=== PATIENT | female | born 1995 | race Caucasian/White ===

== ENCOUNTER 2024-02-24 16:56 | Emergency (ER) | payer SELFPAY ==
[~2024-02-24] VITALS: Ht 160 cm; Wt 85.0 kg
[2024-02-24 17:05] VITALS: O2SAT 98
[2024-02-24] MEDS ORDERED: IBUP-2030 MT (19:50)
[2024-02-24] MEDS: IBUPROFEN 800MG TABLET PO ONE (19:59)
[2024-02-24 20:01] VITALS: BP 126/75; PULSE 66; RESP 18; TEMP 98
== END 2024-02-24 20:50 | disposition home or self-care (01) ==
LOC: ER 16:56
DX: S09.90XA Unspecified injury of head, initial encounter (principal); V89.2XXA Person injured in unspecified motor-vehicle accident, traffic, initial encounter; Y93.89 Activity, other specified; Y92.89 Other specified places as the place of occurrence of the external cause; Y99.8 Other external cause status
CPT/HCPCS: 99284